=== PATIENT | male | born 1980 | race Two or more races ===

== ENCOUNTER 2022-05-20 11:05 | Emergency (ER) | payer OTHER ==
[~2022-05-20] VITALS: Ht 182.9 cm; Wt 98.9 kg
[2022-05-20] MEDS ORDERED: PREDNISONE20 MG PO (14:19)
[2022-05-20] MEDS ORDERED: PEPCID AC20 MG PO (14:19)
[2022-05-20] MEDS ORDERED: BENADRYL ITCH C59 ML TOP (14:19)
== END 2022-05-20 14:25 | disposition home or self-care (01) ==
LOC: ER 11:05
DX: L50.9 Urticaria, unspecified (principal)